=== PATIENT | male | born 1980 | race African-American/Black ===

== ENCOUNTER 2023-03-30 20:57 | Emergency (ER) | payer SELFPAY ==
[2023-03-30] MEDS ORDERED: Lactated Ringer's 2,000 ML ONE (21:17)
[2023-03-30] MEDS ORDERED: Ketorolac Tromethamine 30 MG/ML VIAL ONE (21:17)
[2023-03-30] MEDS ORDERED: Orphenadrine Citrate 60 MG/2 ML VIAL ONE (21:17)
[2023-03-30 21:44] LABS: Bilirubin Negative (Negative); Blood, Urine Small (Negative); Clarity Clear (Clear); Glucose, Urine (Dipstick) Negative (Negative); Ketone, Urine Negative (Negative); Leukocyte Negative (Negative); Nitrite Negative (Negative); Protein, Urine (Dipstick) 30 mg/dL (Neg-Trace); Specific Gravity, Urine 1.025 (1.005-1.030); Urobilinogen 0.2 mg/dL (Less than 2); pH, Urine 5.5 (5.0-9.0)
[2023-03-30 21:51] LABS: Bacteria/HPF Rare-Few HPF (None Seen); CAUTI Indications for Culture Fever or rigors; RBC/HPF 0-3 HPF (0-3); Squamous Epithelial 0-3 HPF (0-3); Urine Culture Reflex No No; WBC/HPF 0-3 HPF (0-3)
[2023-03-30] MEDS ORDERED: Acetaminophen 500 MG TAB ONE (21:59)
[2023-03-30 22:13] LABS: Hematocrit 49.2 % (42.0-52.0); Hemoglobin 15.4 g/dL (14.0-18.0); Mean Corpuscular HGB CONC 31.3 g/dL (32.0-36.0); Mean Corpuscular Hemoglobin 28.8 pg (27.0-31.0); Mean Corpuscular Volume 92.1 fl (78.0-98.0); Mean Platelet Volume 8.3 fL (7.4-10.4); Platelet Count 301 10x3/uL (130-400); RBC Distribution Width 14.4 % (11.5-14.5); Red Blood Cell (RBC) Count 5.35 mill/uL (4.70-6.10); White Blood Cell (WBC) Count 14.7 10x3/uL (4.8-10.8)
[2023-03-30 22:24] LABS: ALT (SGPT) 35 U/L (8-55); AST (SGOT) 29 U/L (5-34); Alkaline Phosphatase 72 U/L (40-110); Anion Gap 13 mmol/L (10-20); BUN (Urea Nitrogen) 11 mg/dL (8.9-20.6); Bilirubin, Total 0.3 mg/dL (0.2-1.2); CK (CPK) 1031 U/L (30-200); Calc. Creatinine Clearance 0 mL/min (70-130); Carbon Dioxide 27 mmol/L (22-29); Chloride 102 mmol/L (98-107); Estimated GFR 81; Glucose 115 mg/dL (70-105); Lipase 22 U/L (8-78); Potassium 2.9 mmol/L (3.5-5.1); Sodium 139 mmol/L (136-145)
[2023-03-30] MEDS ORDERED: Potassium Chloride 20 MEQ TAB ONE (22:35)
[2023-03-30 22:56] LABS: INR-International Normal Ratio 1.1; Prothrombin Time 14.5 sec (12.0-14.7)
[2023-03-30 22:57] LABS: PTT 31.8 sec (22.9-36.1)
[2023-03-30 23:02] LABS: Band 11 % (5-11); Lymphocytes 18 % (21-51); Monocytes 5 % (0-10); Neutrophil 66 % (42-75); Platelet Adequacy Comment Appears Adequate
[2023-03-30 23:04] LABS: MDiff Complete? YES
== END 2023-03-31 02:00 | disposition home or self-care (01) ==
LOC: MADERS 20:57
DX: B34.9 Viral infection, unspecified (principal); E86.0 Dehydration; E87.6 Hypokalemia; R80.9 Proteinuria, unspecified; R31.29 Other microscopic hematuria; R94.31 Abnormal electrocardiogram [ECG] [EKG]; F17.210 Nicotine dependence, cigarettes, uncomplicated; Z11.52 Encounter for screening for COVID-19
CPT/HCPCS: 71046; 80053; 81001; 82550; 83605; 83690; 83735; 85025; 85610; 85730; 87040; 87077; 87149; 87635; 87804; 93005; 94760; 96361; 96374; 96375; 96376; J1885; J2360; J7120